=== PATIENT | female | born 1990 | race Caucasian/White ===

== ENCOUNTER 2018-04-14 17:52 | Emergency (ER) | payer SELFPAY ==
[~2018-04-14] VITALS: Ht 154.9 cm; Wt 97.5 kg
[2018-04-14] MEDS ORDERED: AZIT250T12 PO (20:07)
--- NOTE | 2018-04-14 20:07 | ED Respiratory ---
General Stated Complaint: CONGESTED Source: patient Exam Limitations: no limitations History of Present Illness Date Seen by Provider: Apr 14, 2018 Time Seen by Provider: 20:04 Initial Comments To ER with reports of nasal congestion, cough is nonproductive and body aches. Present for 5 days. Timing/Duration: constant, week Severity: moderate Associated Symptoms: cough, nasal congestion, wheezing Allergies and Home Medications Patient Home Medication List Home Medication List Reviewed: Yes Review of Systems Review of Systems Constitutional: see HPI, malaise EENTM: see HPI, nose congestion Respiratory: see HPI, cough Cardiovascular: no symptoms reported Genitourinary: no symptoms reported Musculoskeletal: no symptoms reported Skin: no symptoms reported Psychiatric/Neurological: No Symptoms Reported Hematologic/Lymphatic: No Symptoms Reported Past Wzjlyom-Hmhbhq-Puflgb Hx Patient Social History Recent Foreign Travel: No Contact w/Someone Who Travel: No Physical Exam Capillary Refill : Height: '" Weight: lbs. oz. kg; BMI Method: General Appearance: WD/WN, no apparent distress Eyes: Bilateral Eye Normal Inspection, Bilateral Eye PERRL, Bilateral Eye EOMI HEENT: PERRL/EOMI, normal ENT inspection, pharynx normal, other (TM bulging on the right with normal color. Serous otitis.) Neck: non-tender, full range of motion Respiratory: normal breath sounds, no respiratory distress, no accessory muscle use Cardiovascular: regular rate, rhythm, no murmur Gastrointestinal: normal bowel sounds, non tender, soft Neurologic/Psychiatric: alert, normal mood/affect, oriented x 3 Skin: normal color, warm/dry Progress/Results/Core Measures Suspected Sepsis SIRS Temperature: Pulse: Respiratory Rate: Blood Pressure / Mean: Results/Orders Vital Signs/I&O Capillary Refill : Departure Impression Primary Impression: Bronchitis Disposition: 01 HOME, SELF-CARE Condition: Stable Departure-Patient Inst. Decision time for Depature: 20:05 Referrals: CARLO BALDERRAMA DO Patient Instructions: Acute Bronchitis in Adults Add. Discharge Instructions: 1. Antibiotics as directed. Fwvr-[id number] cough and cold remedies such as DayQuil and NyQuil are fine to use to help with congestion and cough. Scripts Azithromycin (Azithromycin) 250 Mg Tablet 250 MG PO UD, #6 TAB TAKE 2 TABLETS ON DAY ONE THEN TAKE 1 TABLET DAILY FOR FOUR MORE DAYS Prov: EMMETT GOODSON [employer] 04/14/18 EMMETT GOODSON APRN Apr 14, 2018 20:07
[2018-04-14 20:50] VITALS: BP 198/142
== END 2018-04-14 20:50 | disposition home or self-care (01) ==
LOC: ER 17:54
DX: J40 Bronchitis, not specified as acute or chronic (principal)
CPT/HCPCS: 99282

== ENCOUNTER 2018-08-04 10:31 | Emergency (ER) | payer SELFPAY ==
[~2018-08-04] VITALS: Ht 154.9 cm; Wt 98.9 kg
[~2018-08-04 10:31] MED LIST: AZIT250T12 PO
[2018-08-04] MEDS ORDERED: KETOROLAC 30 MG/ML VIAL IM ONE (10:45)
--- NOTE | 2018-08-04 10:47 | ED Upper Extremity ---
General Stated Complaint: LEFT ARM PAIN Source: patient Exam Limitations: no limitations History of Present Illness Date Seen by Provider: Aug 04, 2018 Time Seen by Provider: 10:27 Initial Comments Patient has been expressing the past day some progressively worsening left elbow and forearm pain. She has difficulty extending her elbow all the way now. She has no history of fracture, traumatic event or surgery on this arm. She's not having any fevers or chills. She's been icing it. She does not use Tylenol or ibuprofen. She used heat as well with minimal relief. She works in a factory throwing crates around. She does a history of hypertension used to be treated on labetalol 500 mg however she been out for some time and is working to get back into her doctor's office and get refills. Her tubes are tied. Allergies and Home Medications Allergies Coded Allergies: No Known Drug Allergies (Unverified , 08/04/18) Home Medications Azithromycin 250 Mg Tablet, 250 MG PO UD TAKE 2 TABLETS ON DAY ONE THEN TAKE 1 TABLET DAILY FOR FOUR MORE DAYS Prescribed by: EMMETT GOODSON on 04/14/182006 Patient Home Medication List Home Medication List Reviewed: Yes Review of Systems Constitutional: No chills, No diaphoresis EENTM: No ear discharge, No hearing loss, No ear pain Respiratory: No cough, No short of breath Cardiovascular: No chest pain, No edema Gastrointestinal: No abdominal pain, No constipation, No diarrhea Past Buqvqaw-Dqrohc-Bckany Hx Patient Social History Alcohol Use: Denies Use Recreational Drug Use: No Smoking Status: Never a Smoker 2nd Hand Smoke Exposure: No Recent Hopitalizations: No Seasonal Allergies Seasonal Allergies: Yes Past Medical History Surgeries: Yes (hernia repair) Adenoidectomy, Section, Tonsillectomy Respiratory: No Cardiac: No Neurological: No Genitourinary: No Gastrointestinal: No Musculoskeletal: No Endocrine: No HEENT: No Cancer: No Psychosocial: No Integumentary: No Blood Disorders: No Physical Exam Vital Signs Capillary Refill : Height, Weight, BMI Height: 5'1.00" Weight: 215lbs. oz. [id number]; BMI Method:Stated General Appearance: WD/WN, mild distress HEENT: PERRL/EOMI Cardiovascular: normal peripheral pulses, regular rate, rhythm, no edema Shoulder: normal inspection, non-tender, no evidence of injury, normal ROM Elbow/Forearm: Left, limited ROM (lacks about 10 of total extension), pain, soft tissue tenderness, swelling (mild) Wrist: Yes normal inspection, Yes non-tender, Yes no evidence of injury, Yes normal ROM Hand: normal inspection, non-tender, no evidence of injury, normal ROM, Left Neurologic/Tendon: normal sensation, normal motor functions, normal tendon functions, responds to pain, no evidence tendon injury Neurologic/Psychiatric: no motor/sensory deficits, alert, normal mood/affect Skin: normal color, warm/dry Progress/Results/Core Measures Results/Orders My Orders Orders - MONIQUE GONZAELZ Ketorolac Injection (Toradol Injection) (08/04/18 10:45) Progress Progress Note : Time: 10:45 Progress Note Overuse injury probable bursitis of the elbow. Toradol and rice therapy with follow-up with PCP. We will refill 30 days of labetalol for her hypertension. Departure Impression Primary Impression: Olecranon bursitis of left elbow Additional Impression: Essential hypertension Disposition: 01 HOME, SELF-CARE Condition: Stable Departure-Patient Inst. Decision time for Depature: 10:46 Referrals: [facility],LOCAL PHYSICIAN (PCP) Primary Care Physician Patient Instructions: Bursitis (DC) Add. Discharge Instructions: Do range of motion exercises several times a day for your left elbow. Apply ice for 20 minutes every 2-4 hours as needed for swelling for the first 3 days. Use heat and wrap the elbow with an Da bandage or neoprene sleeve. Keep the elbow and arm elevated above the level of your heart. Limit your use of your left arm until your pain subsides. Start taking Naprosyn 2 capsules twice a day for the next 2 weeks. Alternatively you could use ibuprofen 800 mg 3 times a day. Tylenol 1000 mg every 8 hours as needed for pain. Scripts Labetalol HCl (Labetalol HCl) 200 Mg Tablet 500 MG PO BID for 30 Days, #150 TAB 0 Refills Prov: MONIQUE GONZALEZ 08/04/18 Work/School Note: Work Release Form Date Seen in the Emergency Department: Aug 04, 2018 Return to Work: Aug 04, 2018 Restrictions: Need Release from Doctor Other Restrictions Listed Below: Left arm no lifting over 1 pound. Minimize use of left arm until 08/11/18. MONIQUE GONZALEZ Aug 04, 2018 10:47
[2018-08-04] MEDS ORDERED: LABE200T7 PO (10:49)
[2018-08-04 10:55] VITALS: BP 178/114
== END 2018-08-04 10:55 | disposition home or self-care (01) ==
LOC: EDUNIT# 10:31 → ER 10:32
DX: M70.22 Olecranon bursitis, left elbow (principal); I10 Essential (primary) hypertension; Z98.890 Other specified postprocedural states; Z90.89 Acquired absence of other organs
CPT/HCPCS: 96372; 99282